=== PATIENT | female | born 1995 | race Caucasian/White ===

== ENCOUNTER 2025-10-05 06:35 | Day surgery (SDC) | payer OTHER, SELFPAY | END 2025-10-05 09:08 | disposition home or self-care (01) | LOC: GI 06:35 | PROVIDERS: ATTENDING PHYSICIAN Internal Medicine Gastroenterology | DX: K62.5 Hemorrhage of anus and rectum (principal); K64.8 Other hemorrhoids | CPT/HCPCS: 45378 ==